=== PATIENT | male | born 1980 | race Caucasian/White ===

== ENCOUNTER 2018-02-28 07:14 | Observation (INO) | payer BC ==
[~2018-02-28 07:14] MED LIST: Buffered Lidocaine 0.9% SYRIN* 5 ML/SYR SYRINGE INTRADERM ONE
[2018-02-28] MEDS ORDERED: Buffered Lidocaine 0.9% SYRIN* 5 ML/SYR SYRINGE ONE (07:37)
[2018-02-28] MEDS ORDERED: Clindamycin 900 MG IVPREMIX(* 900 MG/50 ML SDV IV ONE (07:37)
[2018-02-28] MEDS ORDERED: Acetaminophen TAB* 325 MG PO PRN ×2 (08:15→10:47)
[2018-02-28] MEDS ORDERED: diPHENhydraMINE IV* 50 MG/ML 1 ml VIAL (BENADRYL) IV PRN (08:15)
[2018-02-28] MEDS ORDERED: Ondansetron ODT TAB* 4 MG PO PRN (08:15)
[2018-02-28] MEDS ORDERED: Naloxone* 0.4 MG/ML 1 ML VIAL IV PRN (08:15)
[2018-02-28] MEDS ORDERED: Levalbuterol 1.25MG/0.5ML NEB INH PRN (08:15)
[2018-02-28] MEDS ORDERED: DiMENhydriNATE IV* 50 MG/ML VIAL IV PUSH PRN (08:15)
[2018-02-28] MEDS ORDERED: PROCHLORPERAZINE INJ 5 MG/ML 2 ML VIAL IV PRN (08:15)
[2018-02-28] MEDS ORDERED: HYDROcodone/ACETAMIN 5-325 MG* 1 TAB ONE ×2 (08:20→11:16)
[2018-02-28] MEDS ORDERED: fentaNYL* 50 MCG/ML 2 ML VIAL (100 MCG VIAL) ONE ×4 (08:44→11:16)
[2018-02-28] MEDS ORDERED: Midazolam* 1 MG/ML 2 ML VIAL (2 MG) ONE ×2 (08:44→09:22)
[2018-02-28] MEDS ORDERED: Lidocaine 1% MPF wEPI 200,000* 30 ML SDV ONE (09:03)
[2018-02-28] MEDS ORDERED: Thrombin 5,000 UNITS* 1 APPLIC KIT - topical use - TOPICAL ONE (09:03)
[2018-02-28] MEDS ORDERED: Bacitracin IV* 50,000 UNITS INJ ONE (09:03)
[2018-02-28] MEDS ORDERED: Lidocaine 2% PF * 5 ML VIAL ONE (09:22)
[2018-02-28] MEDS ORDERED: Mivacurium Chloride* 20 MG/10 ML VIAL IV ONE (09:37)
[2018-02-28] MEDS ORDERED: Famotidine IV* 10 MG/ML 2 ML (20 mg) ONE (09:37)
[2018-02-28] MEDS ORDERED: Dexamethasone IV* 4 MG/ML 1 ML (4 MG) ONE (09:37)
[2018-02-28] MEDS ORDERED: Propofol* 10 MG/ML 20 ML BTL IV PUSH ONE (09:37)
[2018-02-28] MEDS ORDERED: DiMENhydriNATE IV* 50 MG/ML VIAL ONE (09:37)
[2018-02-28] MEDS ORDERED: Gelfoam Sponge SIZE 100* SPONGE ONE (09:47)
[2018-02-28] MEDS ORDERED: HYDROcodone/ACETAMIN 5-325 MG* 1 TAB PO PRN (10:47)
[2018-02-28] MEDS ORDERED: Magnesium Hydroxide LIQ* 30 ML UDC PO PRN (10:47)
[2018-02-28] MEDS ORDERED: Ondansetron ODT TAB* 4 MG SL PRN (10:49)
[2018-02-28] MEDS ORDERED: Mouth Piece, Nicotine* 1 EACH CARTRIDGE INH PRN (10:50)
[2018-02-28] MEDS ORDERED: Nicotine Inhaler* 10 MG AMP INH PRN (10:50)
[2018-02-28] MEDS: fentaNYL* 50 MCG/ML 2 ML VIAL (100 MCG VIAL) IV PRN ×4 (10:56→11:48)
[2018-02-28] MEDS ORDERED: Nicotine PATCH 21 MG/24 HR* PATCH TRANSDERM SCH (11:00)
[2018-02-28] MEDS: HYDROcodone/ACETAMIN 5-325 MG* 1 TAB PO PRN ×2 (11:16→14:39)
--- NOTE | 2018-02-28 13:18 | RAD ---
Indication: L4-L5 discectomy. Comparison: February 07, 2018 MRI. Technique: Prone crosstable lateral lumbar sacral spine radiographs obtained on 955 and 1030 hours REPORT AND IMPRESSION: #. 0955 hours exam documents instrument at the level of the inferior margin of the L4-L5 facet joints. #. 1030 hours exam documents and instrument at the level of the L4-L5 intervertebral disc.
[2018-02-28] MEDS ORDERED: Gabapentin CAP(*) 300 MG PO SCH (14:00)
--- NOTE | 2018-02-28 14:14 | PN ---
Progress Note - Progress Note Date of Service: 02/28/18 SOAP: Subjective: [S/p lumbar discectomy L4-5 right, POD #0. Feeling well, pre-op RLE pain resolved. Low back pain controlled with PO medication. Ambulating independently. Eating, drinking and voiding. Denies nausea, vomiting, headache. Would like to be discharged home today.] Objective: [Vital Signs: Temp Pulse Resp BP Pulse Ox 98.2 F 90 19 121/69 93 02/28/18 11:45 02/28/18 11:45 02/28/18 11:48 02/28/18 11:45 02/28/18 11:45 General: Alert and no distress. Laying comfortably in bed. Neuro: Motor and sensory intact. Incision: Intact with nik. No swelling. Dressing dry and intact.] Assessment: [Stable post-op. Pain well controlled with PO meds. Plan: [1. Discharge home. 2. Discharge instructions discussed. ]
[2018-02-28 15:37] VITALS: BP 138/85
[2018-02-28] MEDS ORDERED: Amphetamine/Dextroamph ER(NF) 10 MG CAP.ER PO SCH (21:00)
[2018-03-01] MEDS ORDERED: Nicotine Patch Removal NOTE FOLLOW UP SCH (06:00)
[2018-03-01] MEDS ORDERED: Omeprazole CAP* 20 MG PO SCH (09:00)
--- NOTE | 2018-03-02 21:29 | OP ---
OPERATIVE REPORT: DATE OF OPERATION: 02/28/18. DATE OF : 80. SURGEON: Gabriele Fowler MD. PIECE HAND: JULIANNE Tirado. ANESTHESIA: General. PRE-OP DIAGNOSIS: Herniated nucleus pulposus, L4-5, on the right. POST-OP DIAGNOSIS: Herniated nucleus pulposus, L4-5, on the right. OPERATIVE PROCEDURE: Lumbar diskectomy, L4-5, on the right with microdissection. DESCRIPTION OF PROCEDURE: After satisfactory general anesthesia was obtained, the patient was placed on the operating table in the prone position with the chest supported on the Padilla frame and the ba ck slightly flexed. The lumbar region was then clipped, prepped, and draped in a sterile manner for lumbar laminectomy and a skin incision outlined from L4 to L5. This incision was infiltrated with 1% Xylocaine with epinephrine, after which it was turned down sharply to the level of the lumbar fascia. The fascia was divided along the spinous processes of L4 and L5 and a paraspinal musculature was st ripped away from these posterior elements using the periosteal elevator and monopolar cautery. An in traoperative x-ray was obtained verifying proper interspace localization after which a partial hemila minectomy was carried out by removing the inferior aspect of the L4 lamina and medial aspect of the f acet complex with a combination of the Midas Delvis drill and Kerrison rongeurs. This was carried super iorly until the attachment of ligamentum flavum was taken down. Ligamentum flavum was then removed w ith the Kerrison as well. Additional lateral exposure was obtained as preoperative imaging had sugge sted a superolateral disk herniation. Utilizing microdissection, epidural venous structures were coa gulated and divided. Projecting out laterally was a subcapsular herniation and disk material. An op ening was made in the posterior longitudinal ligament and the disk space cleared of any loose disk ma terial using the pituitary forceps and curettes. This included several pieces projecting out into th e foramen. At the conclusion of decompression, both the L4 and L5 nerve roots were noted to be free in their course. After assuring adequate hemostasis, wound was thoroughly irrigated, after which the fascia was reapproximated with 0 Vicryl suture, the subcutaneous tissues closed with 3-0 Vicryl sutu re, and the skin closed with skin clips. The estimated blood loss was less than 50 mL and the final sponge, padding, and needle counts were correct. The patient was taken to the recovery room, extubat ed, and in stable condition. [id number] #: [id number]
== END 2018-02-28 14:50 | disposition home or self-care (01) ==
LOC: OR 07:14 → SSU 12:10
PROVIDERS: ADMIT Neurological Surgery; ATTEND Neurological Surgery
PROC: 01NB0ZZ Release Lumbar Nerve, Open Approach (ICD-10-PCS; 2018-02-28)
PROC: 0SB20ZZ Excision of Lumbar Vertebral Disc, Open Approach (ICD-10-PCS; principal; 2018-02-28 08:45)
DX: M51.26 Other intervertebral disc displacement, lumbar region (principal); Z79.899 Other long term (current) drug therapy; Z88.0 Allergy status to penicillin; F17.210 Nicotine dependence, cigarettes, uncomplicated; M51.16 Intervertebral disc disorders with radiculopathy, lumbar region
CPT/HCPCS: 72100; 88304; A9270-GY; G0378; J1100; J1240; J2001; J2250; J2704; J3010

== ENCOUNTER 2020-12-28 11:29 | Observation (INO) ==
[~2020-12-28 11:29] MED LIST changes: -Buffered Lidocaine 0.9% SYRIN* 5 ML/SYR SYRINGE INTRADERM ONE; +Buffered Lidocaine 1% SYRIN 1 ml INTRADERM ONE; +Clindamycin 900 MG/D5W BAG 900 MG/50 ML BAG IVPB ONE; +Ketamine HCL 50 mg/ml 10 ml VIAL (500 MG) ONE; +Lactated Ringers 1000 ml BAG 1,000 ML IV SCH; +Lidocaine 2% PF 5 ML VIAL ONE; +Midazolam 2 mg/2 ml VIAL 1 mg/ml 2 ml VIAL (2 mg) ONE; +Rocuronium 50 mg VIAL 10 mg/ml 5 ml VIAL (50 mg) ONE; +fentaNYL 250 mcg/5 ml 50 MCG/ML 5 ml VIAL (250 MCG) ONE
[2020-12-28] MEDS ORDERED: Propofol 10 MG/ML 20 ML BTL ONE ×4 (12:45→15:17)
[2020-12-28] MEDS ORDERED: HYDROmorphone 1 MG/1 ML SYRINGE ONE ×5 (12:57→17:01)
[2020-12-28] MEDS ORDERED: Ondansetron 4 mg VIAL 2 MG/ML 2 ml VIAL IV PRN (13:54)
[2020-12-28] MEDS ORDERED: Ondansetron ODT 4 mg TAB 4 MG TAB PO PRN (13:54)
[2020-12-28] MEDS ORDERED: diPHENhydraMINE 25 mg TAB PO PRN (13:54)
[2020-12-28] MEDS ORDERED: diPHENhydraMINE IV 50 MG/ML 1 ml VIAL (BENADRYL) IV PRN ×2 (13:54→15:18)
[2020-12-28] MEDS ORDERED: Magnesium Hydroxide LIQ 30 ML UDC PO PRN (13:54)
[2020-12-28] MEDS ORDERED: Lactulose 30 ml UDC PO PRN (13:54)
[2020-12-28] MEDS ORDERED: Acetaminophen IV 1 GM/100ML 100 ML ONE (15:09)
[2020-12-28] MEDS ORDERED: Naloxone 0.4 mg VIAL 0.4 mg/ml 1 ml VIAL IV PRN (15:18)
[2020-12-28] MEDS ORDERED: Dexamethasone IV 4 MG/ML VIAL 1 ml VIAL ONE (15:20)
[2020-12-28] MEDS ORDERED: Ondansetron 4 mg VIAL 2 MG/ML 2 ml VIAL ONE (15:20)
[2020-12-28] MEDS: HYDROmorphone 1 MG/1 ML SYRINGE IV PRN ×2 (16:17→16:27)
[2020-12-28] MEDS ORDERED: HYDROmorphone 1 MG/1 ML SYRINGE IV SLOW PU PRN (16:48)
[2020-12-28] MEDS: Lactated Ringers 1000 ml BAG 1,000 ML IV SCH (17:35)
[2020-12-28] MEDS: oxyCODONE/Acetamin 5/325 mg TAB PO PRN ×2 (18:35→23:58)
[2020-12-28] MEDS: Nicotine PATCH 21 MG/24 HR PATCH TRANSDERM SCH (18:42)
[2020-12-28] MEDS: Magnesium Hydroxide LIQ 30 ML UDC PO SCH (20:18)
[2020-12-28] MEDS: Morphine 2 MG/ML SYRINGE IV PRN (20:19)
[2020-12-28] MEDS: Clindamycin 600 MG/D5W BAG 600 MG/50 ML BAG IV SCH (20:26)
[2020-12-29] MEDS: Morphine 2 MG/ML SYRINGE IV PRN (03:52)
[2020-12-29] MEDS: Lactated Ringers 1000 ml BAG 1,000 ML IV SCH (03:57)
[2020-12-29 04:26] LABS: Hematocrit 38 % (42-52); Hemoglobin 12.4 g/dL (14.0-18.0); Mean Platelet Volume 7.2 fL (7.4-10.4); Platelet Count 192 10^3/uL (150-450)
[2020-12-29 04:41] LABS: Calcium 8.7 mg/dL (8.6-10.3); EGFR African American 151.1 (>60); EGFR Non-African American 124.9 (>60); Potassium 4.1 mmol/L (3.5-5.0)
[2020-12-29] MEDS: Clindamycin 600 MG/D5W BAG 600 MG/50 ML BAG IV SCH (05:14)
[2020-12-29] MEDS: oxyCODONE/Acetamin 5/325 mg TAB PO PRN (07:34)
[2020-12-29 07:54] VITALS: BP 132/74
[2020-12-29] MEDS: Magnesium Hydroxide LIQ 30 ML UDC PO SCH (08:26)
[2020-12-29] MEDS: Nicotine PATCH 21 MG/24 HR PATCH TRANSDERM SCH (08:31)
[2020-12-29] MEDS ORDERED: Vitamin THERAPEUTIC TAB PO SCH (09:00)
[2020-12-29] MEDS ORDERED: CMCS: Amphetamine/Dextroam ER 10(NF) 10 mg CAP.ER PO SCH (09:00)
== END 2020-12-29 10:20 | disposition home or self-care (01) ==
LOC: SSU 11:29 → OR 11:29
PROVIDERS: ADMIT Orthopaedic Surgery Adult Reconstructive Orthopaedic Surgery; ATTEND Orthopaedic Surgery Adult Reconstructive Orthopaedic Surgery

== ENCOUNTER 2021-05-19 07:31 | Inpatient (IN) ==
[~2021-05-19 07:31] MED LIST changes: -Buffered Lidocaine 1% SYRIN 1 ml INTRADERM ONE; -Clindamycin 900 MG/D5W BAG 900 MG/50 ML BAG IVPB ONE; +Dexamethasone IV 4 MG/ML VIAL 1 ml VIAL ONE; -Ketamine HCL 50 mg/ml 10 ml VIAL (500 MG) ONE; -Lactated Ringers 1000 ml BAG 1,000 ML IV SCH; +Ondansetron 4 mg VIAL 2 MG/ML 2 ml VIAL ONE; -Rocuronium 50 mg VIAL 10 mg/ml 5 ml VIAL (50 mg) ONE; +fentaNYL 100 mcg/2 ml 50 MCG/ML VIAL ONE; -fentaNYL 250 mcg/5 ml 50 MCG/ML 5 ml VIAL (250 MCG) ONE
[2021-05-19] MEDS ORDERED: Clindamycin 900 MG/D5W BAG 900 MG/50 ML BAG IVPB ONE (08:15)
[2021-05-19] MEDS ORDERED: Buffered Lidocaine 1% SYRIN 1 ml INTRADERM ONE (08:15)
[2021-05-19] MEDS ORDERED: HYDROcodone/ACETAMIN 5/325 mg TAB PO PRN (08:47)
[2021-05-19] MEDS ORDERED: diPHENhydraMINE IV 50 MG/ML 1 ml VIAL (BENADRYL) IV PRN ×2 (08:47→10:59)
[2021-05-19] MEDS ORDERED: Metoclopramide 5 MG/ML VIAL (10 mg) IV PRN (08:47)
[2021-05-19] MEDS ORDERED: Ondansetron 4 mg VIAL 2 MG/ML 2 ml VIAL IV PRN ×2 (08:47→10:59)
[2021-05-19] MEDS ORDERED: Naloxone 0.4 mg VIAL 0.4 mg/ml 1 ml VIAL IV PRN (08:47)
[2021-05-19] MEDS ORDERED: Propofol 10 mg/ml 100 ML BTL 300 ML ONE (09:11)
[2021-05-19] MEDS ORDERED: Phenylephrine IV 10 MG/ML 1 ml VIAL ONE (09:15)
[2021-05-19] MEDS ORDERED: EPHEDrine (Pressors) 50 MG/ML VIAL ONE (10:36)
[2021-05-19] MEDS ORDERED: diPHENhydraMINE 25 mg TAB PO PRN (10:59)
[2021-05-19] MEDS ORDERED: Lactulose 30 ml UDC PO PRN (10:59)
[2021-05-19] MEDS ORDERED: Magnesium Hydroxide LIQ 30 ML UDC PO PRN (10:59)
[2021-05-19] MEDS ORDERED: Ondansetron ODT 4 mg TAB 4 MG TAB PO PRN (10:59)
[2021-05-19] MEDS ORDERED: Lactated Ringers 1000 ml BAG 1,000 ML IV SCH (11:00)
[2021-05-19] MEDS ORDERED: Propofol 10 mg/ml 100 ML BTL ONE (12:00)
[2021-05-19] MEDS ORDERED: Propofol 10 MG/ML 20 ML BTL ONE ×4 (12:41→13:19)
[2021-05-19] MEDS ORDERED: fentaNYL 100 mcg/2 ml 50 MCG/ML VIAL ONE ×3 (12:43→14:27)
[2021-05-19] MEDS ORDERED: HYDROmorphone 1 MG/1 ML SYRINGE ONE (13:43)
[2021-05-19] MEDS ORDERED: HYDROcodone/ACETAMIN 5/325 mg TAB ONE (13:43)
[2021-05-19] MEDS: HYDROmorphone 1 MG/1 ML SYRINGE IV PRN ×5 (13:45→14:20)
[2021-05-19] MEDS ORDERED: Nicotine PATCH 7 MG/24 HR PATCH TRANSDERM SCH (14:00)
[2021-05-19] MEDS: fentaNYL 100 mcg/2 ml 50 MCG/ML VIAL IV PRN ×5 (14:22→14:39)
[2021-05-19] MEDS: Amphetamine/Dextroam ER 10(NF) 10 mg CAP.ER PO SCH (15:29)
[2021-05-19] MEDS: Morphine 2 MG/ML SYRINGE IV PRN ×2 (16:52→22:02)
[2021-05-19] MEDS ORDERED: Nicotine PATCH 14 MG/24 HR PATCH ONE (17:40)
[2021-05-19] MEDS: Nicotine PATCH 14 MG/24 HR PATCH TRANSDERM SCH (17:43)
[2021-05-19] MEDS: Clindamycin 600 MG/D5W BAG 600 MG/50 ML BAG IV SCH (20:13)
[2021-05-19] MEDS: Magnesium Hydroxide LIQ 30 ML UDC PO SCH (21:21)
[2021-05-20] MEDS ORDERED: Calcium Carb (TUMS) 500 mg CHEW TAB PO PRN (01:03)
[2021-05-20] MEDS: Morphine 2 MG/ML SYRINGE IV PRN ×2 (02:04→06:07)
[2021-05-20] MEDS: Clindamycin 600 MG/D5W BAG 600 MG/50 ML BAG IV SCH ×2 (04:02→11:16)
[2021-05-20] MEDS ORDERED: Vitamin THERAPEUTIC TAB PO SCH (09:00)
[2021-05-20] MEDS ORDERED: Multivitamins/Minerals TAB PO SCH (09:00)
[2021-05-20] MEDS: Nicotine PATCH 14 MG/24 HR PATCH TRANSDERM SCH (09:12)
[2021-05-20] MEDS: Magnesium Hydroxide LIQ 30 ML UDC PO SCH (09:13)
[2021-05-20] MEDS: Amphetamine/Dextroam ER 10(NF) 10 mg CAP.ER PO SCH ×2 (09:14→12:28)
[2021-05-20] MEDS ORDERED: Morphine ER 15 mg TAB ** extended release PO ONE (09:19)
[2021-05-20 11:15] LABS: Hematocrit 34 % (42-52); Hemoglobin 10.9 g/dL (14.0-18.0); Mean Platelet Volume 7.4 fL (7.4-10.4); Platelet Count 216 10^3/uL (150-450)
[2021-05-20 11:36] LABS: EGFR African American 115.5 (>60); EGFR Non-African American 95.4 (>60); Potassium 3.2 mmol/L (3.5-5.0)
[2021-05-20] MEDS ORDERED: Potassium Chlor 20 meq TAB.ER PO ONE (12:10)
[2021-05-20 12:23] VITALS: BP 108/57
[2021-05-21] MEDS ORDERED: Potassium Chlor 20 meq TAB.ER PO SCH (09:00)
== END 2021-05-20 13:07 | disposition home or self-care (01) | DRG 301 ==
LOC: AA 07:31 → SSU 15:07
PROVIDERS: ADMIT Orthopaedic Surgery Adult Reconstructive Orthopaedic Surgery; ATTEND Orthopaedic Surgery Adult Reconstructive Orthopaedic Surgery